=== PATIENT | female | born 1965 | race Hispanic/Latino ===

== ENCOUNTER 2020-12-25 09:30 | Emergency (ER) | payer OTHER ==
[~2020-12-25] VITALS: Ht 157.5 cm; Wt 70.1 kg
[2020-12-25] MEDS ORDERED: ASPIRIN 81 MG CHEW TAB PO ONE (10:30)
[2020-12-25] MEDS ORDERED: ACETAMINOPHEN 325 MG TAB PO ONE (10:30)
[2020-12-25] MEDS ORDERED: FAMOTIDINE 20 MG/2 ML VIAL IV ONE ×2 (10:30→10:41)
[2020-12-25] MEDS ORDERED: ASPIRIN 81 MG CHEW TAB ONE (10:40)
[2020-12-25] MEDS ORDERED: ACETAMINOPHEN 325 MG TAB ONE (10:40)
== END 2020-12-25 11:13 | disposition home or self-care (01) ==
LOC: FSED 09:40
DX: R00.2 Palpitations (principal); R07.9 Chest pain, unspecified; K21.9 Gastro-esophageal reflux disease without esophagitis; R94.31 Abnormal electrocardiogram [ECG] [EKG]
CPT/HCPCS: 71046; 80053; 81003; 82553; 84484; 85025; 85379; 93005; 96374; 99284